=== PATIENT | female | born 1935 | race Caucasian/White ===

== ENCOUNTER 2022-11-27 12:39 | Emergency (ER) | payer MEDICAID ==
[~2022-11-27] VITALS: Ht 165.1 cm; Wt 65.0 kg
[2022-11-27 12:44] VITALS: BP 139/70
[2022-11-27] MEDS ORDERED: DOCUSATE SODIUM 250MG CAPSULE PO ONE (14:45)
[2022-11-27] MEDS ORDERED: DOCU-138 MT (15:22)
[2022-11-27] MEDS ORDERED: FEO PR (15:22)
== END 2022-11-27 15:57 | disposition home or self-care (01) ==
LOC: ER 12:39
DX: K59.00 Constipation, unspecified (principal); G47.00 Insomnia, unspecified; G30.9 Alzheimer's disease, unspecified; F02.80 Dementia in other diseases classified elsewhere, unspecified severity, without behavioral disturbance, psychotic disturbance, mood disturbance, and anxiety
CPT/HCPCS: 74018; 99283